=== PATIENT | female | born 2000 | race Hispanic/Latino ===

== ENCOUNTER 2022-12-30 14:46 | Outpatient (CLI) | payer OTHER | END 2022-12-30 14:47 | disposition home or self-care (01) | LOC: CSHULT 14:46 | PROVIDERS: ATTEND Family Medicine | DX: O09.892 Supervision of other high risk pregnancies, second trimester (principal); Z3A.23 23 weeks gestation of pregnancy | CPT/HCPCS: 76805 ==

== ENCOUNTER 2023-02-28 23:02 | Emergency (ER) | payer MEDICAID, OTHER, SELFPAY ==
[2023-02-28 23:40] LABS: #Eosinphils 0.1 10x3/uL (0.0-0.5); #Monocytes 0.6 10x3/uL (0.0-1.1); #Neutrophils 5.1 10x3/uL (1.5-8.4); %Basophils 0.4 % (0.0-2.0); %Eosinophils 0.9 % (0.0-6.0); %Lymphocytes 24.5 % (18.0-47.0); %Monocytes 7.8 % (0.0-10.0); Hematocrit 32.2 % (34.9-44.5); Hemoglobin 10.9 g/dL (12.0-15.5); Mean Corpuscular HGB CONC 33.9 g/dL (32.0-36.0); Mean Corpuscular Hemoglobin 29.3 pg (27.0-33.0); Mean Corpuscular Volume 86.6 fl (81.6-98.3); Mean Platelet Volume 9.3 fl (7.4-10.4); Platelet Count 249 10x3/uL (150-450); Red Blood Cell (RBC) Count 3.72 10x6/uL (3.90-5.03); White Blood Cell (WBC) Count 7.7 10x3/uL (3.5-10.5)
[2023-02-28 23:48] LABS: ALT (SGPT) 38 U/L (8-55); AST (SGOT) 48 U/L (5-34); Albumin 3.2 g/dL (3.5-5.0); Alkaline Phosphatase 159 U/L (40-110); Anion Gap 15 mmol/L (10-20); BUN (Urea Nitrogen) 8 mg/dL (7.0-18.7); Calc. Creatinine Clearance 0 mL/min (70-130); Calcium 8.4 mg/dL (7.8-10.44); Carbon Dioxide 20 mmol/L (22-29); Chloride 107 mmol/L (98-107); Estimated GFR 128; Globulin 3.4 g/dL (2.4-3.5); Glucose 93 mg/dL (70-105); Lipase 28 U/L (8-78); Potassium 3.6 mmol/L (3.5-5.1); Protein, Total 6.6 g/dL (6.0-8.3); Sodium 138 mmol/L (136-145)
[2023-02-28] MEDS ORDERED: Mag-Al Plus 1200/1200/120 MG (30 mL) UDCUP ONE (23:58)
[2023-03-01] MEDS ORDERED: Acetaminophen 500 MG TAB ONE (01:45)
[2023-03-01 02:21] LABS: Bilirubin Neg (Negative); Blood, Urine 10 (Negative); Clarity Slightly Cloudy (Clear); Glucose, Urine (Dipstick) Normal (Negative); Ketone, Urine Negative (Negative); Leukocyte 500 (Negative); Nitrite Negative (Negative); Protein, Urine (Dipstick) 15 mg/dl (Neg-Trace)
[2023-03-01 02:36] LABS: CAUTI Indications for Culture Pregnancy; RBC/HPF 0-3 HPF (0-3)
[2023-03-01 02:37] LABS: Bacteria/HPF 2+ HPF (None Seen)
[2023-03-01 02:45] LABS: Yeast-Hyphae 1+ HPF (None Seen)
[2023-03-01 02:47] LABS: Urine Culture Reflex Yes Yes
[2023-03-01] MEDS ORDERED: Nitrofurantoin Monohyd/M-Cryst 100 MG CAP PO SCH (03:15)
== END 2023-03-01 03:25 | disposition home or self-care (01) ==
LOC: CSHERS 23:02
DX: O23.43 Unspecified infection of urinary tract in pregnancy, third trimester (principal); O99.891 Other specified diseases and conditions complicating pregnancy; M54.6 Pain in thoracic spine; Z3A.31 31 weeks gestation of pregnancy
CPT/HCPCS: 80053; 81001; 83690; 85025; 87086; 99283

== ENCOUNTER 2023-03-24 12:07 | Day surgery (SDC) | payer OTHER | END 2023-03-24 13:10 | disposition home health service (06) | LOC: CSHLD/OP 12:07 | PROVIDERS: ATTEND Family Medicine | DX: O26.643 Intrahepatic cholestasis of pregnancy, third trimester (principal); K83.1 Obstruction of bile duct; Z3A.34 34 weeks gestation of pregnancy; Z79.899 Other long term (current) drug therapy ==

== ENCOUNTER 2023-04-04 10:07 | Inpatient (IN) | payer MEDICAID, OTHER ==
[2023-04-03 13:53] LABS: Hematocrit 34.6 % (34.9-44.5); Hemoglobin 11.5 g/dL (12.0-15.5); Platelet Count 286 10x3/uL (150-450)
[2023-04-03 14:11] LABS: Syphilis Antibody Nonreactive (Nonreactive)
[2023-04-03 14:12] LABS: HBSAg Index 0.29 S/CO (0-0.99); Hep B Surf Ag Non-Reactive S/CO (NonReactive)
[2023-04-04] MEDS ORDERED: Methylergonovine 0.2 MG/ML VIAL IM PRN (10:17)
[2023-04-04] MEDS ORDERED: Misoprostol 200 MCG TAB PR PRN (10:17)
[2023-04-04] MEDS ORDERED: Diphenoxylate HCl/Atropine Tablet PO PRN (10:17)
[2023-04-04] MEDS ORDERED: hydrALAZINE 20 MG/ML VIAL SLOW IVP PRN ×2 (10:17→16:30)
[2023-04-04] MEDS ORDERED: Ondansetron PF 4 MG/2 ML Vial IVP PRN ×4 (10:17→16:30)
[2023-04-04] MEDS ORDERED: Promethazine HCl 25 MG/ML VIAL IM PRN ×3 (10:17→16:30)
[2023-04-04] MEDS ORDERED: Tranexamic Acid 1,000 MG/10 ML VIAL IVP PRN (10:17)
[2023-04-04] MEDS ORDERED: Bicitra 30 ML UDCUP PO PRN (10:17)
[2023-04-04] MEDS ORDERED: Carboprost 250 MCG/ML AMP IM PRN (10:17)
[2023-04-04] MEDS ORDERED: Famotidine/PF 20 mg/2ml Vial SLOW IVP PRN (10:17)
[2023-04-04] MEDS ORDERED: Moisturizing Cream (Eucerin) 113 GM JAR TOP PRN (10:24)
[2023-04-04] MEDS ORDERED: Promethazine HCl 25 MG SUPP PR PRN (10:24)
[2023-04-04] MEDS ORDERED: Naloxone HCl 0.4 mg/ml Vial IV PRN (10:24)
[2023-04-04] MEDS ORDERED: fentaNYL 50 mcg/mL 1 mL Vial SLOW IVP PRN (10:24)
[2023-04-04] MEDS ORDERED: diphenhydrAMINE 50 MG/ML VIAL IVP PRN (10:24)
[2023-04-04] MEDS ORDERED: Meperidine HCl/PF 25 MG (1 mL) VIAL SLOW IVP PRN (10:24)
[2023-04-04] MEDS ORDERED: Naloxone HCl 0.4 mg/ml Vial IVP PRN ×2 (10:24)
[2023-04-04] MEDS ORDERED: Oxytocin 30 units/NS 500 ML 500 ML IV SCH (10:30)
[2023-04-04] MEDS ORDERED: Lactated Ringer's 1,000 ML IV SCH (10:30)
[2023-04-04] MEDS ORDERED: Communication Order-Pharmacy FS SCH (10:30)
[2023-04-04 10:56] VITALS: BMI 29.2
[2023-04-04] MEDS: CEFAZOLIN 2 GM in Sodium Chloride 0.9% 100 ML IVPB SCH ×2 (11:03→11:31)
[2023-04-04] MEDS ORDERED: Ondansetron PF 4 MG/2 ML Vial ONE (11:19)
[2023-04-04] MEDS ORDERED: Morphine PF 10 MG/10 ML VIAL ONE (11:19)
[2023-04-04] MEDS ORDERED: ePHEDrine Sulfate 50 MG/10 ML VIAL ONE (11:19)
[2023-04-04] MEDS ORDERED: PHENYLEPHRINE-NS 100 MCG/ML 10 ML SYRINGE ONE (11:20)
[2023-04-04] MEDS ORDERED: Oxytocin 10 UNITS/ML VIAL ONE ×2 (11:20→11:21)
[2023-04-04] MEDS ORDERED: Phenylephrine 40 MG/NS 250 ML 250 ML ONE (11:21)
[2023-04-04] MEDS ORDERED: Erythromycin Base 0.5% Oint 1 GM TUBE ONE (12:22)
[2023-04-04] MEDS ORDERED: Phytonadione Neonatal 1 MG/0.5 ML AMP ONE (12:22)
[2023-04-04] MEDS ORDERED: Hepatitis B Vaccine 10 MCG/0.5 ML SYR ONE (12:22)
[2023-04-04] MEDS ORDERED: Morphine 4 MG/ML VIAL SLOW IVP PRN (16:20)
[2023-04-04] MEDS ORDERED: Bisacodyl 10 MG SUPP PR PRN (16:30)
[2023-04-04] MEDS ORDERED: Lanolin Ointment 7 GM TUBE TOP PRN (16:30)
[2023-04-04] MEDS ORDERED: Meperidine HCl/PF 25 MG (1 mL) VIAL IM PRN ×2 (16:30→22:30)
[2023-04-04] MEDS ORDERED: Simethicone Chewable 80 MG TAB PO PRN (16:30)
[2023-04-04] MEDS ORDERED: Boostrix 0.5 ML (Tdap) VIAL (>/=7 yrs of age) IM ONE (16:30)
[2023-04-04] MEDS ORDERED: Ketorolac Tromethamine 30 MG (1 mL) VIAL IVP SCH (19:30)
[2023-04-04] MEDS ORDERED: Ketorolac Tromethamine 30 MG (1 mL) VIAL IVP PRN (19:35)
[2023-04-04] MEDS: Ketorolac Tromethamine 30 MG (1 mL) VIAL IVP SCH (20:22)
[2023-04-04] MEDS: Docusate 100 MG CAP PO SCH (20:22)
[2023-04-04] MEDS: Ferrous Sulfate 325 MG TAB PO SCH (20:23)
[2023-04-05] MEDS: Ketorolac Tromethamine 30 MG (1 mL) VIAL IVP SCH ×2 (01:45→07:47)
[2023-04-05 05:16] LABS: Hematocrit 28.7 % (34.9-44.5); Hemoglobin 9.5 g/dL (12.0-15.5); Mean Corpuscular HGB CONC 33.1 g/dL (32.0-36.0); Mean Corpuscular Hemoglobin 27.9 pg (27.0-33.0); Mean Corpuscular Volume 84.2 fl (81.6-98.3); Platelet Count 220 10x3/uL (150-450); RBC Distribution Width 14.2 % (11.5-14.5); Red Blood Cell (RBC) Count 3.41 10x6/uL (3.90-5.03); White Blood Cell (WBC) Count 8.4 10x3/uL (3.5-10.5)
[2023-04-05] MEDS: Prenatal Vitamin 1 TAB PO SCH (07:46)
[2023-04-05] MEDS: Docusate 100 MG CAP PO SCH ×2 (07:47→21:22)
[2023-04-05] MEDS: Ferrous Sulfate 325 MG TAB PO SCH ×2 (07:47→21:22)
[2023-04-05] MEDS: HYDROcodone/Acetaminophen 5/325 mg Tablet PO PRN ×3 (09:39→21:22)
[2023-04-05] MEDS: Ibuprofen 800 MG TAB PO SCH ×2 (14:25→21:24)
[2023-04-06] MEDS: Ibuprofen 800 MG TAB PO SCH ×3 (05:20→21:15)
[2023-04-06] MEDS: Ferrous Sulfate 325 MG TAB PO SCH ×2 (07:30→21:15)
[2023-04-06] MEDS: Docusate 100 MG CAP PO SCH ×2 (07:30→21:14)
[2023-04-06] MEDS: HYDROcodone/Acetaminophen 5/325 mg Tablet PO PRN ×3 (07:30→21:14)
[2023-04-06] MEDS: Prenatal Vitamin 1 TAB PO SCH (07:30)
[2023-04-06] MEDS: diphenhydrAMINE 25 MG CAP PO PRN (12:33)
[2023-04-07] MEDS: Ibuprofen 800 MG TAB PO SCH ×2 (06:07→12:46)
[2023-04-07 07:49] VITALS: BP 108/59; TEMP 98.5
[2023-04-07] MEDS: Ferrous Sulfate 325 MG TAB PO SCH (08:41)
[2023-04-07] MEDS: Docusate 100 MG CAP PO SCH (08:41)
[2023-04-07] MEDS: HYDROcodone/Acetaminophen 5/325 mg Tablet PO PRN (08:41)
[2023-04-07] MEDS: diphenhydrAMINE 25 MG CAP PO PRN (08:41)
[2023-04-07] MEDS: Prenatal Vitamin 1 TAB PO SCH (08:41)
== END 2023-04-07 14:00 | disposition home or self-care (01) | DRG 786 ==
LOC: CSHLD 10:07 → CSHPP 16:19
PROVIDERS: ADMIT Family Medicine; ATTEND Family Medicine
PROC: 10D00Z1 Extraction of Products of Conception, Low, Open Approach (ICD-10-PCS; principal; 2023-04-04)
DX: O34.211 Maternal care for low transverse scar from previous cesarean delivery (principal); K83.1 Obstruction of bile duct; O26.643 Intrahepatic cholestasis of pregnancy, third trimester; Z3A.36 36 weeks gestation of pregnancy; Z37.0 Single live birth; Z79.899 Other long term (current) drug therapy
CPT/HCPCS: 36415; 51702; 85014; 85018; 85027; 85049; 86780; 86850; 86900; 86901; 87340; 90715; J1200; J1885; J2210; J2274; J2405; J2590; J3490; J7120; S0028

== ENCOUNTER 2023-04-21 19:52 | Emergency (ER) | payer MEDICAID, OTHER ==
[2023-04-21] MEDS ORDERED: Ibuprofen 200 MG TAB ONE (20:48)
[2023-04-21 20:58] LABS: Bilirubin Neg (Negative); Blood, Urine 150 (Negative); Clarity Clear (Clear); Glucose, Urine (Dipstick) Normal (Negative); Ketone, Urine Negative (Negative); Leukocyte Negative (Negative); Nitrite Negative (Negative); Protein, Urine (Dipstick) Negative (Neg-Trace); Urobilinogen Normal mg/dL (Less than 2)
[2023-04-21 21:07] LABS: #Basophils 0.1 10x3/uL (0.0-0.2); #Eosinphils 0.2 10x3/uL (0.0-0.5); #Monocytes 0.5 10x3/uL (0.0-1.1); #Neutrophils 6.7 10x3/uL (1.5-8.4); %Basophils 0.8 % (0.0-2.0); %Eosinophils 2.1 % (0.0-6.0); %Lymphocytes 20.7 % (18.0-47.0); %Monocytes 5.6 % (0.0-10.0); %Neutrophils 70.5 % (40.0-75.0); Hematocrit 37.8 % (34.9-44.5); Hemoglobin 12.4 g/dL (12.0-15.5); Mean Corpuscular HGB CONC 32.8 g/dL (32.0-36.0); Mean Corpuscular Hemoglobin 27.3 pg (27.0-33.0); Mean Corpuscular Volume 83.1 fl (81.6-98.3); Mean Platelet Volume 8.9 fl (7.4-10.4); Platelet Count 461 10x3/uL (150-450); RBC Distribution Width 14.6 % (11.5-14.5); Red Blood Cell (RBC) Count 4.55 10x6/uL (3.90-5.03); White Blood Cell (WBC) Count 9.5 10x3/uL (3.5-10.5)
[2023-04-21 21:14] LABS: Bacteria/HPF None Seen HPF (None Seen); CAUTI Indications for Culture Pelvic or flank pain; Squamous Epithelial 0-3 HPF (0-3); Urine Culture Reflex No No; WBC/HPF 0-3 HPF (0-3)
[2023-04-21 21:21] LABS: ALT (SGPT) 14 U/L (8-55); AST (SGOT) 17 U/L (5-34); Albumin 4.2 g/dL (3.5-5.0); Alkaline Phosphatase 117 U/L (40-110); Anion Gap 13 mmol/L (10-20); BUN (Urea Nitrogen) 17 mg/dL (7.0-18.7); Bilirubin, Total 0.5 mg/dL (0.2-1.2); Calc. Creatinine Clearance 0 mL/min (70-130); Calcium 9.4 mg/dL (7.8-10.44); Carbon Dioxide 25 mmol/L (22-29); Chloride 106 mmol/L (98-107); Estimated GFR 114; Globulin 3.6 g/dL (2.4-3.5); Glucose 93 mg/dL (70-105); Lipase 35 U/L (8-78); Potassium 3.7 mmol/L (3.5-5.1); Protein, Total 7.8 g/dL (6.0-8.3); Sodium 140 mmol/L (136-145)
== END 2023-04-21 22:03 | disposition home or self-care (01) ==
LOC: CSHERS 19:52
DX: G89.18 Other acute postprocedural pain (principal)
CPT/HCPCS: 36415; 80053; 81001; 83690; 85025; 99284